=== PATIENT | female | born 2000 | race Caucasian/White ===

== ENCOUNTER → 2022-03-31 15:42 | Outpatient (BNVA) | payer SELFPAY | DX: R76.11 Nonspecific reaction to tuberculin skin test without active tuberculosis (principal) ==

== ENCOUNTER → 2022-04-06 09:59 | Outpatient (BNVA) | payer SELFPAY | DX: R76.11 Nonspecific reaction to tuberculin skin test without active tuberculosis (principal); Z23 Encounter for immunization | CPT/HCPCS: 90715 ==